=== PATIENT | female | born 1975 ===

== ENCOUNTER 2016-08-28 10:58 | Emergency (ER) | payer BC ==
--- NOTE | 2016-08-28 11:30 | Emergency Department Record ---
History of Present Illness - General Chief Complaint: Fever Stated Complaint: FEVER Time Seen by Provider: 08/28/16 11:25 Source: Patient Mode of Arrival: Ambulatory Limitations: No limitations - History of Present Illness Initial Comments: 41 yo male presents to ED with a CC of cough, congestion, and fever symptoms for the past 5 days. Patient denies health problems at his baseline. MD Complaint: Fever Onset/Timin -: Week(s) Temperature Source: Subjective Context: Sick contacts Associated Symptoms: Cough, Myalgias, Rhinorrhea Treatments Prior to Arrival: Aspirin - Related Data Home Medications Medication Instructions Recorded Confirmed Last Taken Aspirin/Acetaminophen/Caffeine 1 each PO ASDIR tab 07/09/15 08/28/16 06:30 [Excedrin Extra Strength Caplet] Previous Rx's Medication Instructions Recorded Doxycycline Hyclate [Doxycycline] 100 mg PO BID #20 cap 08/28/16 Allergies Allergy/AdvReac Type Severity Reaction Status Date / Time cephalexin monohydrate Allergy Mild HIVES Verified 08/28/16 11:12 [From Keflex] diphenhydramine HCl Allergy Mild HIVES Verified 08/28/16 11:12 [From Benadryl] Travel Screening - Travel/Exposure Within Last 30 Days Have you traveled within the last 30 days?: No - Travel/Exposure Within Last Year Have you traveled outside the [place] in the last year?: No - Additonal Travel Details Have you been exposed to anyone with a communicable illness?: No - Travel Symptoms Symptom Screening: None Review of Systems Constitutional: Reports: Fever, Malaise. Denies: Chills, Night sweats Eyes: Denies: Eye discharge, Eye pain, Photophobia ENT: Reports: Congestion. Denies: Ear pain Respiratory: Reports: Cough. Denies: Dyspnea Cardiovascular: Denies: Chest pain, Dyspnea on exertion Endocrine: Denies: Fatigue, Heat or cold intolerance Gastrointestinal: Denies: Abdominal pain, Nausea, Vomiting Genitourinary: Denies: Dysuria, Frequency, Hematuria Musculoskeletal: Denies: Arthralgia, Back pain, Gout, Joint swelling Skin: Denies: Bruising, Change in color Neurological: Denies: Abnormal gait, Confusion, Headache, Seizure Psychiatric: Denies: Anxiety Hematological/Lymphatic: Denies: Anemia, Blood Clots Past Medical History - SOCIAL HISTORY Smoking Status: Never smoker Alcohol Use: None Drug Use: None - RESPIRATORY Hx Respiratory Disorders: No - CARDIOVASCULAR Hx Cardio Disorders: No - NEURO Hx Neuro Disorders: No - GI Hx GI Disorders: No - Hx Genitourinary Disorders: No - ENDOCRINE Hx Endocrine Disorders: No - MUSCULOSKELETAL Hx Musculoskeletal Disorders: No - PSYCH Hx Psych Problems: No - HEMATOLOGY/ONCOLOGY Hx Hematology/Oncology Disorders: No Family Medical History Any Significant Family History?: No Physical Exam - General General Appearance: Alert, Oriented x3, Cooperative, No acute distress, Other ( reading a newspaper on examination) Limitations: No limitations - Head Head exam: Atraumatic, Normocephalic, Normal inspection Head exam detail: negative: Abrasion, Contusion, Tyler's sign, General tenderness, Hematoma, Laceration - Eye Eye exam: Normal appearance. negative: Conjunctival injection, Periorbital swelling, Periorbital tenderness, Scleral icterus - ENT ENT exam: Normal orophraynx Ear exam: negative: Auricular hematoma, Auricular trauma Nasal Exam: negative: Active bleeding, Discharge, Dried blood, Foreign body Mouth exam: negative: Drooling, Laceration, Muffled voice, Tongue elevation - Neck Neck exam: Normal inspection. negative: Meningismus, Tenderness - Respiratory Respiratory exam: Normal lung sounds bilaterally. negative: Rales, Respiratory distress, Rhonchi, Stridor - Cardiovascular Cardiovascular Exam: Regular rate, Normal rhythm, Normal heart sounds - GI/Abdominal GI/Abdominal exam: Soft - Rectal Rectal exam: Deferred - exam: Deferred - Extremities Extremities exam: Normal inspection. negative: Calf tenderness, Pedal edema, Tenderness - Back Back exam: Denies: CVA tenderness (R), CVA tenderness (L) - Neurological Neurological exam: Alert, Normal gait, Oriented X3 - Psychiatric Psychiatric exam: Normal affect, Normal mood - Skin Skin exam: Normal color. negative: Abrasion Type of lesion: negative: abrasion Course Vital Signs 08/28/16 11:13 Temperature 98.3 F Pulse Rate 71 Respiratory 18 Rate Blood Pressure 104/69 Pulse Ox 97 - Reevaluation(s) Reevaluation #1: 08/28/16 12:01 Influenza appears negative. Will discharge home on doxycycline for 10 days for his URI symptoms. 08/28/16 12:02 Disposition Disposition: Discharge Clinical Impression: URI (upper respiratory infection) Qualifiers: URI type: unspecified URI Qualified Code(s): J06.9 - Acute upper respiratory infection, unspecified Disposition: Home, Self-Care Condition: (2) Stable Instructions: Fever in Adults (ED) Additional Instructions: Return to ED if your symptoms worsen or if you have any concerns. Follow-up with your family doctor in 3-5 days as directed. Doxycycline as directed. Prescriptions: Doxycycline Hyclate [Doxycycline] 100 mg PO BID #20 cap Forms: Patient Portal Access Time of Disposition: 12:03
[2016-08-28 11:56] LABS: INFLUENZA A NEGATIVE (NEGATIVE); INFLUENZA B NEGATIVE (NEGATIVE)
== END 2016-08-28 12:13 | disposition home or self-care (01) ==
LOC: ER 10:58
DX: J06.9 Acute upper respiratory infection, unspecified (principal); R05 Cough
CPT/HCPCS: 87400; 99282

== ENCOUNTER 2016-09-05 10:53 | Emergency (ER) | payer BC ==
--- NOTE | 2016-09-05 11:20 | Emergency Department Record ---
History of Present Illness - General Chief Complaint: Cough Stated Complaint: MAYBE HAVE A UTI Time Seen by Provider: 09/05/16 11:06 Source: Patient Mode of Arrival: Ambulatory Limitations: No limitations - History of Present Illness Initial Comments: 41 yo male presents with a few concerns. He has had an ongoing cough for a couple weeks. The cough is non a little productive. No history of asthma or COPD. He was treated with doxycycline from the ER about one week ago. He also has noted a change in urination. He has noted some burning with urination. No blood. No fevers. MD Complaint: Cough Onset/Timin -: Week(s) Severity: Moderate Consistency: Constant Improves With: Nothing Worsens With: Nothing Treatments Prior to Arrival: None - Related Data Home Medications Medication Instructions Recorded Confirmed Last Taken Aspirin/Acetaminophen/Caffeine 1 each PO ASDIR tab 07/09/15 09/05/16 08/28/16 06:30 [Excedrin Extra Strength Caplet] Acetaminophen [Tylenol 325Mg] 650 mg PO Q6H PRN 09/05/16 09/05/16 Unknown Previous Rx's Medication Instructions Recorded Levofloxacin [Levaquin] 750 mg PO DAILY #7 tab 09/05/16 Allergies Allergy/AdvReac Type Severity Reaction Status Date / Time cephalexin monohydrate Allergy Mild HIVES Verified 09/05/16 11:08 [From Keflex] diphenhydramine HCl Allergy Mild HIVES Verified 09/05/16 11:08 [From Benadryl] Travel Screening - Travel/Exposure Within Last 30 Days Have you traveled within the last 30 days?: No - Travel/Exposure Within Last Year Have you traveled outside the [place] in the last year?: No - Additonal Travel Details Have you been exposed to anyone with a communicable illness?: No - Travel Symptoms Symptom Screening: None Review of Systems Constitutional: Denies: Chills, Fever, Malaise, Weakness Eyes: Denies: Eye discharge ENT: Reports: Congestion. Denies: Dental pain, Ear pain, Epistaxis, Throat pain Respiratory: Reports: Cough. Denies: Dyspnea, Hemoptysis, Stridor, Wheezes Cardiovascular: Denies: Chest pain, Palpitations, Syncope Endocrine: Denies: Fatigue Gastrointestinal: Denies: Abdominal pain, Diarrhea, Nausea, Vomiting Musculoskeletal: Denies: Arthralgia, Back pain, Neck pain Skin: Denies: Bruising, Change in color Neurological: Denies: Confusion, Headache Psychiatric: Denies: Anxiety Hematological/Lymphatic: Denies: Blood Clots, Easy bleeding, Easy bruising, Swollen glands Past Medical History - SOCIAL HISTORY Smoking Status: Never smoker Alcohol Use: None Drug Use: None - RESPIRATORY Hx Respiratory Disorders: No - CARDIOVASCULAR Hx Cardio Disorders: No - NEURO Hx Neuro Disorders: No - GI Hx GI Disorders: No - Hx Genitourinary Disorders: No - ENDOCRINE Hx Endocrine Disorders: No - MUSCULOSKELETAL Hx Musculoskeletal Disorders: No - PSYCH Hx Psych Problems: No - HEMATOLOGY/ONCOLOGY Hx Hematology/Oncology Disorders: No Family Medical History Any Significant Family History?: Yes Hx Cancer: Grandparents Hx Diabetes: Grandparents Physical Exam - General General Appearance: Alert, Oriented x3, Cooperative, No acute distress Limitations: No limitations - Head Head exam: Normal inspection - Eye Eye exam: Normal appearance, PERRL. negative: Conjunctival injection, Periorbital swelling - ENT ENT exam: Normal exam, Mucous membranes moist, Normal external ear exam, Normal orophraynx Ear exam: Normal external inspection. negative: External canal tenderness Nasal Exam: Normal inspection. negative: Discharge, Sinus tenderness Mouth exam: Normal external inspection Teeth exam: Normal inspection. negative: Dental caries Throat exam: Normal inspection. negative: Tonsillar erythema, Tonsillar exudate - Neck Neck exam: Normal inspection, Full ROM. negative: Tenderness - Respiratory Respiratory exam: Normal lung sounds bilaterally. negative: Respiratory distress, Rhonchi, Stridor, Wheezes - Cardiovascular Cardiovascular Exam: Regular rate, Normal rhythm, Normal heart sounds - GI/Abdominal GI/Abdominal exam: Soft - Extremities Extremities exam: Normal inspection, Full ROM, Normal capillary refill. negative: Tenderness - Back Back exam: Reports: Normal inspection, Full ROM. Denies: CVA tenderness (R), CVA tenderness (L), Muscle spasm, Paraspinal tenderness, Rash noted, Tenderness , Vertebral tenderness - Neurological Neurological exam: Alert, Normal gait, Oriented X3 - Psychiatric Psychiatric exam: Normal affect, Normal mood - Skin Skin exam: Dry, Intact, Normal color, Warm Course Vital Signs 09/05/16 10:58 Temperature 97.9 F Pulse Rate 76 Respiratory 18 Rate Blood Pressure 119/73 Pulse Ox 99 Vitals reviewed by me - Reevaluation(s) Reevaluation #1: EMR reviewed from prior ED visit in 09/05/16 11:12 Reevaluation #2: The CXR was reviewed by me. No acute changes. Mild hyperinflation. UA with 7-10 RBC and few bacteria. I called the lab and requested a urine culture The influenza are negative for A and B Remaining UA labs pending. 09/05/16 11:49 Disposition Disposition: Discharge Clinical Impression: Dysuria URI (upper respiratory infection) Qualifiers: URI type: unspecified URI Qualified Code(s): J06.9 - Acute upper respiratory infection, unspecified Disposition: Home, Self-Care Condition: (1) Good Instructions: Acute Bronchitis (ED), Dysuria (ED) Additional Instructions: Return if not improved in the next one week Return sooner if you have fever, pain, nausea, vomiting or any new concerns or symptoms Prescriptions: Levofloxacin [Levaquin] 750 mg PO DAILY #7 tab Forms: Patient Portal Access Time of Disposition: 11:54
[2016-09-05 11:27] LABS: URINE APPEARANCE CLEAR; URINE BILIRUBIN NEGATIVE (NEGATIVE); URINE BLOOD SMALL (NEGATIVE); URINE COLOR YELLOW; URINE GLUCOSE (UA) NEGATIVE (NEGATIVE); URINE KETONE NEGATIVE (NEGATIVE); URINE LEUKOCYTE ESTERASE NEGATIVE (NEGATIVE); URINE NITRITE NEGATIVE (NEGATIVE); URINE PROTEIN NEGATIVE (NEGATIVE); URINE UROBILINOGEN 0.2 E.U./dL (0.20 - 1.00)
[2016-09-05 11:44] LABS: INFLUENZA A NEGATIVE (NEGATIVE); INFLUENZA B NEGATIVE (NEGATIVE)
[2016-09-05 11:46] LABS: URINE BACTERIA FEW; URINE SQUAMOUS EPITHELIAL CELL 0 - 2 /hpf; URINE WBC 0 - 2 (0-2/hpf)
== END 2016-09-05 12:07 | disposition home or self-care (01) ==
LOC: EDSEX 10:53 → ER 10:53
DX: J06.9 Acute upper respiratory infection, unspecified (principal); R30.0 Dysuria; R82.99 Other abnormal findings in urine
CPT/HCPCS: 71020; 81001; 87400; 99283; 99284

== ENCOUNTER 2017-09-28 11:52 | Emergency (ER) | payer BC ==
--- NOTE | 2017-09-28 12:16 | Emergency Department Record ---
History of Present Illness - General Chief complaint: Flank Pain Stated complaint: BACK PAIN Time Seen by Provider: 09/28/17 12:06 Source: Patient Mode of Arrival: Ambulatory Limitations: No limitations - History of Present Illness Initial comments: The patient is here due to a 3 day hx of R flank aching pain intermittently with possible blood in his urine. He denies any hx of kidney stones, fever, chills or AP but he may have had a UTI in the past. There has been no nausea, vomiting, diarrhea or dysuria. MD Complaint: Other Onset/Timin -: Days(s) Location: Right flank Radiation: None Severity scale (1-10): 8 Quality: Sharp, Other Other - Related Data Previous Rx's Medication Instructions Recorded Naproxen [Naprosyn] 500 mg PO BID #14 tablet. 09/28/17 Allergies Allergy/AdvReac Type Severity Reaction Status Date / Time cephalexin monohydrate Allergy Mild HIVES Verified 09/28/17 12:05 [From Keflex] diphenhydramine HCl Allergy Mild HIVES Verified 09/28/17 12:05 [From Benadryl] Travel Screening - Travel/Exposure Within Last 30 Days Have you traveled within the last 30 days?: No - Travel/Exposure Within Last Year Have you traveled outside the [place] in the last year?: No - Additonal Travel Details Have you been exposed to anyone with a communicable illness?: No - Travel Symptoms Symptom Screening: None Review of Systems Constitutional: Denies: Chills, Fever Eyes: Denies: Eye discharge ENT: Denies: Congestion Respiratory: Denies: Cough, Dyspnea Past Medical History - SOCIAL HISTORY Smoking Status: Never smoker Alcohol Use: Rare Drug Use: None - RESPIRATORY Hx Respiratory Disorders: No - CARDIOVASCULAR Hx Cardio Disorders: No - NEURO Hx Neuro Disorders: No - GI Hx GI Disorders: No - Hx Genitourinary Disorders: Yes Hx UTI: Yes - ENDOCRINE Hx Endocrine Disorders: No - MUSCULOSKELETAL Hx Musculoskeletal Disorders: No - PSYCH Hx Psych Problems: No - HEMATOLOGY/ONCOLOGY Hx Hematology/Oncology Disorders: No Family Medical History Any Significant Family History?: No Hx Cancer: Grandparents Hx Diabetes: Grandparents Physical Exam - General General Appearance: Alert, Oriented x3, Cooperative, No acute distress - Head Head exam: Atraumatic, Normocephalic, Normal inspection - Eye Eye exam: Normal appearance, PERRL - Neck Neck exam: Normal inspection, Full ROM. negative: Tenderness - Respiratory Respiratory exam: Normal lung sounds bilaterally. negative: Respiratory distress - Cardiovascular Cardiovascular Exam: Regular rate, Normal rhythm, Normal heart sounds - GI/Abdominal GI/Abdominal exam: Soft, Normal bowel sounds. negative: Tenderness - Extremities Extremities exam: Normal inspection, Full ROM, Normal capillary refill. negative: Tenderness - Back Back exam: Reports: Normal inspection, Full ROM. Denies: CVA tenderness (R), CVA tenderness (L), Muscle spasm, Paraspinal tenderness, Rash noted, Tenderness , Vertebral tenderness - Neurological Neurological exam: Alert, Normal gait. negative: Abnormal gait, Motor sensory deficit Course Vital Signs 09/28/17 11:58 Temperature 98.2 F Pulse Rate 84 Respiratory 16 Rate Blood Pressure 126/84 Pulse Ox 97 - Reevaluation(s) Reevaluation #1: The patient is resting comfortably and denies any pain or discomfort at this time. I did explain to him the test results were basically neg for any stone or urinary tract issue but that it did demonstrate some chronic back issues. He is to F/U with a PCP for recheck next week. 09/28/17 13:16 Medical Decision Making - Data Complexity MDM Data: Labs Ordered and/or Reviewed, X-Ray Ordered and/or Reviewed - Lab Data Result diagrams: 09/28/17 12:20 09/28/17 12:20 - Radiology Data Radiology results: Report reviewed (CT: Neg for ureter stone or hydro.) Disposition Disposition: Discharge Clinical Impression: Dysuria Disposition: Home, Self-Care Condition: (2) Stable Instructions: Flank Pain (ED) Additional Instructions: Please take Naprosyn for pain and please see a family doctor for recheck later this week. Please have your doctor take a look at your CT report due to the chronic back issues. Return to the ER for any worsening pain, fever, or vomiting. Prescriptions: Naproxen [Naprosyn] 500 mg PO BID #14 tablet.dr Forms: Patient Portal Access Time of Disposition: 13:19 Quality - Quality Measures Quality Measures: N/A - Blood Pressure Screening View Details: Yes Does Patient Have Any of the Following: No Blood Pressure Classification: Pre-Hypertensive BP Reading Systolic Measurement: 126 Diastolic Measurement: 84 Screening for High Blood Pressure: < Pre-Hypertensive BP, F/U Documented > [ [id number]] Pre-Hypertensive Follow-up Interventions: Referral to alternative/primary care provider.
[2017-09-28 12:23] LABS: URINE APPEARANCE CLEAR; URINE BILIRUBIN NEGATIVE (NEGATIVE); URINE BLOOD NEGATIVE (NEGATIVE); URINE COLOR YELLOW; URINE GLUCOSE (UA) NEGATIVE (NEGATIVE); URINE KETONE NEGATIVE (NEGATIVE); URINE LEUKOCYTE ESTERASE NEGATIVE (NEGATIVE); URINE NITRITE NEGATIVE (NEGATIVE); URINE PROTEIN NEGATIVE (NEGATIVE); URINE UROBILINOGEN 0.2 E.U./dL (0.20 - 1.00)
[2017-09-28 12:26] LABS: BASO % 1.1 % (0-6); GRAN % 51.7 % (47-80); HEMOGLOBIN 14.3 gm/dl (14.0-18.0); LYMPH % 33.6 % (16-45); MEAN CELL VOLUME 89.4 fl (81-97); MEAN CORPUSCULAR HEMOGLOBIN 29.7 pg (27-33); MEAN CORPUSCULAR HGB CONC 33.3 g/dl (32-36); MEAN PLATELET VOLUME 9.6 fl (7.4-10.4); MONO % 10.6 % (0-9); PLATELET COUNT 270 K/uL (130-400); RED BLOOD COUNT 4.81 M/uL (4.40-5.70); RED CELL DISTRIBUTION WIDTH 12.2 % (11.5-14.5); WHITE BLOOD COUNT W/O DIFF 4.4 K/uL (4.2-12.2)
[2017-09-28 12:40] LABS: BLOOD UREA NITROGEN 13 mg/dL (6-20); CREATININE 0.7 mg/dL (0.7-1.2); EST GLOMERULAR FILTRATION RATE > 60 mL/min
[2017-09-28 12:43] LABS: GLUCOSE,RANDOM 107 mg/dL (74-109)
--- NOTE | 2017-09-29 08:38 | CT SCAN REPORT ---
EXAM: CT OF THE ABDOMEN AND PELVIS WITHOUT CONTRAST HISTORY: RIGHT FLANK PAIN, GROSS HEMATURIA, DYSURIA. TECHNIQUE: Axial CT scan of the abdomen and pelvis was performed without oral or IV contrast. Comparison: None. FINDINGS: There is a single tiny calculus in the left kidney consistent with a tiny currently nonobstructing intrarenal calculus on the left. None seen on the right. No hydronephrosis or hydroureter is seen on either side. As such it is very difficult to follow the entire course of both ureters in their nondilated state throughout the retroperitoneum and pelvis, but no definite ureteral calculus seen on either side and no bladder calculus evident. There is a tiny left sided pelvic calcification. The exact relationship to the ureter is somewhat difficult to establish as the left ureter is difficult to identify, but this is probably a phlebolith and is also on the nonsymptomatic side of the pelvis. Some mild prostate calcification is present. No calcified gallstones seen within the gallbladder. Evaluation of the bowel and viscera is extremely limited without oral or IV contrast in this relatively thin patient with little retroperitoneal or mesenteric adipose tissue to act as a natural contrast agent the viscera. Given this limitation, no definite hepatic, splenic, adrenal, pancreatic, or renal mass identified. prominent stool throughout the colon raising the possibility of constipation and clinical correlation is suggested. The appendix is not well seen without contrast, but may be identified as a normal caliber structure with slight hyperdensity probably representing some concentrated enteric content. No definite appendicitis evident. The lung bases appear clear. No free intraperitoneal air or free intraperitoneal fluid evident. Bilateral spondylolysis of L5, but no appreciable spondylolisthesis of L5 on S1. IMPRESSION: 1. SINGLE TINY NONOBSTRUCTING CALCULUS LEFT KIDNEY. NO DEFINITE URETERAL CALCULUS OR HYDRONEPHROSIS SEEN ON EITHER SIDE. 2. BILATERAL SPONDYLOLYSIS OF L5, BUT NO SPONDYLOLISTHESIS OF L5 ON S1 EVIDENT. 3. NO APPENDICITIS IDENTIFIED. NO FREE AIR OR FREE FLUID EVIDENT. JOB NUMBER: [id number] MTDD
== END 2017-09-28 13:23 | disposition home or self-care (01) ==
LOC: ER 11:52
DX: R30.0 Dysuria (principal); M54.5 Low back pain; R31.0 Gross hematuria
CPT/HCPCS: 74176; 80048; 81003; 85025; 99283; 99284

== ENCOUNTER 2018-05-14 05:49 | Emergency (ER) | payer BC ==
--- NOTE | 2018-05-14 06:05 | Emergency Department Record ---
History of Present Illness - General Chief Complaint: Cough Stated Complaint: COUGH, NIRANJAN Time Seen by Provider: 05/14/18 05:53 Source: Patient, Family Mode of Arrival: Ambulatory Limitations: No limitations - History of Present Illness Initial Comments: 43 yo male presents with on week of sore throat, swollen glands, cough with green sputum, and fevers. He has had some sick contacts with young child around him. He is a non smoker. No blood in the sputum. No history of asthma or COPD. He has some vomiting at the very beginning that resolved. No rash. He does not have a current PCP. MD Complaint: Cough, Fever, Nasal congestion, Sore throat Onset/Timin -: Week(s) Severity: Mild Severity scale (1-10): 3 Consistency: Constant Improves With: Nothing Worsens With: Other (cough) Associated Symptoms: Chills, Cough, Fever, Nasal congestion, Rhinorrhea, Sore throat Treatments Prior to Arrival: None - Related Data Previous Rx's Medication Instructions Recorded Azithromycin 250 mg PO DAILY #4 tablet 05/14/18 Allergies Allergy/AdvReac Type Severity Reaction Status Date / Time cephalexin monohydrate Allergy Mild HIVES Verified 05/14/18 05:55 [From Keflex] diphenhydramine HCl Allergy Mild HIVES Verified 05/14/18 05:55 [From Benadryl] Travel Screening - Travel/Exposure Within Last 30 Days Have you traveled within the last 30 days?: No - Travel Symptoms Symptom Screening: Fever (Subjective) Review of Systems Constitutional: Reports: Chills, Fever, Malaise Eyes: Denies: Eye discharge, Eye pain, Photophobia, Vision change ENT: Reports: Congestion, Throat pain Respiratory: Reports: Cough Cardiovascular: Reports: Chest pain (with coughing) Endocrine: Denies: Fatigue Gastrointestinal: Reports: Vomiting (once day then resolved). Denies: Diarrhea Genitourinary: Denies: Dysuria, Frequency, Hematuria Musculoskeletal: Denies: Arthralgia, Back pain, Myalgia Skin: Denies: Bruising, Change in color, Rash Neurological: Denies: Confusion Psychiatric: Denies: Anxiety Hematological/Lymphatic: Reports: Swollen glands. Denies: Easy bleeding, Easy bruising Past Medical History - SOCIAL HISTORY Smoking Status: Never smoker Drug Use: None - RESPIRATORY Hx Respiratory Disorders: No - CARDIOVASCULAR Hx Cardio Disorders: No - NEURO Hx Neuro Disorders: No - GI Hx GI Disorders: No - Hx Genitourinary Disorders: Yes Hx UTI: Yes - ENDOCRINE Hx Endocrine Disorders: No - MUSCULOSKELETAL Hx Musculoskeletal Disorders: No - PSYCH Hx Psych Problems: No - HEMATOLOGY/ONCOLOGY Hx Hematology/Oncology Disorders: No Family Medical History Hx Cancer: Grandparents Hx Diabetes: Grandparents Physical Exam - General General Appearance: Alert, Oriented x3, Cooperative, No acute distress Limitations: No limitations - Head Head exam: Atraumatic, Normal inspection - Eye Eye exam: Normal appearance. negative: Conjunctival injection, Scleral icterus - ENT ENT exam: Normal exam, Mucous membranes moist. negative: Normal orophraynx Ear exam: Normal external inspection Nasal Exam: Discharge. negative: Normal inspection Mouth exam: Normal external inspection Teeth exam: Normal inspection Throat exam: Tonsillar erythema. negative: Tonsillomegaly, Tonsillar exudate, R peritonsillar mass, L peritonsillar mass - Neck Neck exam: Normal inspection, Full ROM, Lymphadenopathy (mild few anterior cervical LN tender but mobile), Tenderness. negative: Meningismus - Respiratory Respiratory exam: Normal lung sounds bilaterally. negative: Prolonged expiratory, Respiratory distress, Rhonchi, Stridor, Wheezes - Cardiovascular Cardiovascular Exam: Regular rate, Normal rhythm, Normal heart sounds - GI/Abdominal GI/Abdominal exam: Soft. negative: Tenderness - Rectal Rectal exam: Deferred - exam: Deferred - Extremities Extremities exam: Normal inspection, Full ROM, Normal capillary refill. negative: Tenderness - Back Back exam: Denies: CVA tenderness (R), CVA tenderness (L) - Neurological Neurological exam: Alert, Oriented X3 - Psychiatric Psychiatric exam: Normal affect, Normal mood Course Vital Signs 05/14/18 05:56 Temperature 98.0 F Pulse Rate [ 82 Pulse Ox Probe] Respiratory 20 Rate Blood Pressure 118/76 [Left Arm] Pulse Ox 99 - Reevaluation(s) Reevaluation #1: The vitals were reviewed No significant abnormalities 05/14/18 06:04 05/14/18 06:24 The preliminary chest XR report was reviewed No acute process We discussed home care, reasons to return to the ED and follow up at the [facility] Disposition Disposition: Discharge Clinical Impression: URI (upper respiratory infection) Qualifiers: URI type: unspecified URI Qualified Code(s): J06.9 - Acute upper respiratory infection, unspecified Acute tonsillitis Qualifiers: Pharyngitis/tonsillitis etiology: unspecified etiology Qualified Code(s): J03.90 - Acute tonsillitis, unspecified Disposition: Home, Self-Care Condition: (1) Good Instructions: Acute Bronchitis (ED) Additional Instructions: Call the number for a new family doctor at the [facility] Return if worse, vomiting or any new concerns Take the prescriptions as directed Prescriptions: Azithromycin 250 mg PO DAILY #4 tablet Forms: Patient Portal Access Time of Disposition: 06:26 Quality - Quality Measures Quality Measures: N/A - Blood Pressure Screening Does Patient Have Any of the Following: No Blood Pressure Classification: Normal BP Reading Systolic Measurement: 118 Diastolic Measurement: 76 Screening for High Blood Pressure: < Normal BP, F/U Not Required > [G8783]
[2018-05-14] MEDS: DEXAMETHASONE SOD PHOSPHATE 10MG/ML VIAL PO ONE (06:10)
[2018-05-14] MEDS: AZITHROMYCIN 500 MG TABLET PO ONE (06:11)
--- NOTE | 2018-05-16 08:31 | RADIOLOGY REPORT ---
EXAM: CHEST 2 VIEWS HISTORY: PRODUCTIVE COUGH AND CHEST PRESSURE FOR THE PAST WEEK. TECHNIQUE: PA and lateral upright views of the chest were obtained. COMPARISON: September 05, 2016. FINDINGS: The heart, mediastinum, and pulmonary vasculature are normal. The lungs appear mildly hyperinflated. There are no acute infiltrates or effusions. There is no pneumothorax. The bones appear intact. IMPRESSION: NO ACUTE CHEST PATHOLOGY. JOB NUMBER: [id number] [facility]
== END 2018-05-14 06:32 | disposition home or self-care (01) ==
LOC: ER 05:49
DX: J03.90 Acute tonsillitis, unspecified (principal); J06.9 Acute upper respiratory infection, unspecified; R05 Cough
CPT/HCPCS: 99283 ×2; 71046; J1100